=== PATIENT | female | born 2000 | race Caucasian/White ===

== ENCOUNTER 2018-02-17 09:48 | Emergency (ER) | payer BC ==
[2018-02-17 10:05] VITALS: BP 108/63
--- NOTE | 2018-02-17 10:43 | UC ---
Throat Pain/Nasal Miguel HPI - HPI Summary HPI Summary: Patient has had sever sore throat for the past few days. SHe has no other complaints - History of Current Complaint Chief Complaint: UCRespiratory Stated Complaint: SWOLLEN GLANDS/THROAT COMP Hx Obtained From: Patient Hx Last Menstrual Period: 02/16/18 ?: No Onset/Duration: Sudden Onset, Lasting Days Severity: Moderate Pain Intensity: 5 Cough: None Associated Signs & Symptoms: Positive: Dysphagia - Allergies/Home Medications Allergies/Adverse Reactions: Allergies Allergy/AdvReac Type Severity Reaction Status Date / Time honey Allergy Hives Verified 02/17/18 10:00 MS Honey [Honey] Allergy Hives Verified 02/17/18 10:00 PMH/Surg Hx/FS Hx/Imm Hx Previously Healthy: Yes - Surgical History Surgical History: Yes Surgery Procedure, Year, and Place: heart surgery- October 2017- ablation - Family History Known Family History: Positive: Cardiac Disease - MOTHER - TACHYCARDIA, Diabetes - MATERNAL GRANDMOTHER - Social History Alcohol Use: None Substance Use Type: None Smoking Status (MU): Never Smoked Tobacco - Immunization History Vaccination Up to Date: Yes Review of Systems Constitutional: Negative Skin: Negative Eyes: Negative ENT: Sore Throat Respiratory: Negative Cardiovascular: Negative Gastrointestinal: Negative Genitourinary: Negative Motor: Negative Neurovascular: Negative Musculoskeletal: Negative Neurological: Negative Psychological: Negative Is Patient Immunocompromised?: No All Other Systems Reviewed And Are Negative: Yes Physical Exam Triage Information Reviewed: Yes Appearance: Well-Appearing, Well-Nourished, Pain Distress Vital Signs: Initial Vital Signs Temp 97.8 F 02/17/18 10:01 Pulse 71 02/17/18 10:01 Resp 14 02/17/18 10:01 BP 108/63 02/17/18 10:01 Pulse Ox 100 02/17/18 10:01 Vital Signs Reviewed: Yes Eye Exam: Normal ENT: Positive: Pharynx normal, Pharyngeal erythema, Tonsillar swelling - on left side, 2 small blisters around Dental Exam: Normal Neck exam: Normal Respiratory Exam: Normal Respiratory: Positive: Chest non-tender, Lungs clear, Normal breath sounds Cardiovascular Exam: Normal Cardiovascular: Positive: RRR, No Murmur, Pulses Normal Abdominal Exam: Normal Bowel Sounds: Positive: Present Musculoskeletal Exam: Normal Neurological Exam: Normal Psychological Exam: Normal Skin Exam: Normal Throat Pain/Nasal Course/Dx - Course Course Of Treatment: hx obtained, exam performed ,meds reviewed, rapid strep obtained and was neg. magic mouthwash prescribed. - Differential Dx/Diagnosis Differential Diagnosis/HQI/PQRI: Mononucleosis, Peritonsillar Abscess, Pharyngitis, Tonsillitis Provider Diagnoses: viral pharyngitis. amphthus ulcer Discharge - Sign-Out/Discharge Documenting (check all that apply): Discharge/Admit/Transfer - Discharge Plan Condition: Stable Disposition: HOME Prescriptions: Magic Mouth Was-ANAND/MAAL/LIDO* 5 ml SWISH SPIT QID #100 ml Patient Education Materials: Pharyngitis (ED) Referrals: Nora Martinez MD [Primary Care Provider] - Additional Instructions: 1. Use the mouth wash up to 4 times a day for comfort 2. Increase fluid intake and get plenty of rest 3. If you develope worsening symptoms or this last longer thatn 2 weeks follow up with your Primary physician. - Billing Disposition and Condition Condition: STABLE Disposition: Home
[2018-02-17] MEDS ORDERED: Lidocaine 2% VISCOUS* 15 ML UDC SWISH SPIT ONE (10:53)
== END 2018-02-17 11:03 | disposition home or self-care (01) ==
LOC: UCCORT 09:48
DX: J02.8 Acute pharyngitis due to other specified organisms (principal); K12.0 Recurrent oral aphthae
CPT/HCPCS: 87651; 99212; G0463